=== PATIENT | female | born 1960 | race Caucasian/White ===

== ENCOUNTER 2022-06-21 17:39 | Emergency (ER) | payer OTHER, SELFPAY ==
[2022-06-21 17:48] VITALS: BP 120/60; BP 125/77; PULSE 77; PULSE 85; RESP 20; O2SAT 96; O2SAT 98; BMI 20.5
--- NOTE | 2022-06-21 17:58 | ED.GENADULT ---
HPI - General Adult General Stated complaint: UNRESP,DENIES DRUG USE,NARCAN GIVEN W/GOOD RESULT Time Seen by Provider: 06/21/22 17:51 Source: patient, EMS, RN notes reviewed and old records reviewed Mode of arrival: EMS Limitations: no limitations History of Present Illness HPI narrative: 62-year-old female presents for evaluation of ?I do not know why I am here and I want to leave. ? Per EMS, the patient was found unresponsive and responded to Narcan. The patient states ?I was just looking for witnarendra Mita on the bottom shelf. She denies any drug abuse including opiates or heroin. The patient states that she would like to leave She has no physical complaints She arrives awake, alert oriented to person place and time Review of Systems Constitutional: Constitutional: Reports as per HPI, Denies chills, Denies fatigue, Denies fever(s) and Denies headache(s) ENT: Denies headache(s) Cardiovascular: Cardiovascular: Denies chest pain and Denies dyspnea Respiratory: Respiratory: Denies cough and Denies dyspnea Gastrointestinal: Gastrointestinal: Denies abdominal pain, Denies constipation and Denies vomiting Genitourinary: Genitourinary: Denies dysuria Neurologic: Denies headache(s) and Denies focal weakness Endocrine: Endocrine: Denies fatigue Physical Exam ED Const General: healthy appearing, comfortable, no acute distress, alert and awake Nutritional Appearance: well nourished Orientation/consciousness: patient oriented x3 HENMT Head: Yes normocephalic and Yes atraumatic Throat: Yes posterior oropharynx normal Eyes Eyelids: Yes eyelids normal Conjunctivae: conjunctivae normal Sclerae: sclerae normal Corneas: corneas normal Pupils: Equal, round and reactive pupils present EOM: EOMs intact bilaterally Neck Neck: Yes full ROM Resp Effort & Inspection: normal respiratory effort, able to speak in complete sentences, no audible wheezes and not labored Auscultation: clear to auscultation bilaterally Cardio Rate: regular rate Rhythm: regular rhythm GI Inspection: No distended Palpation (GI): Soft to palpation, not firm, nontender, no guarding and not rigid Auscultation: normoactive bowel sounds Skin General skin exam: no rashes or lesions noted and elasticity normal Neuro General: patient oriented x3 Cranial nerves: Yes CN's II-XII intact bilaterally, Yes Equal, round and reactive pupils present and Yes Bilaterally intact EOM present Cognition (Neuro): normal cognition Extrem Other: Moving all extremities well without any obvious deformities Medical Decision Making Medical Decision Making MDM Narrative: 62 of female presents for evaluation of a possible opiate overdose. The patient denies any opiate abuse. I did offer to do a drug screen in the patient declines. The patient like to sign out against medical advice. Given that her vital signs are stable, she is awake, and oriented, she is on her right to do so. I did explain to the patient that if she does have opiates in her system, the reversal medication Narcan may not last as long as he will potentially could become unresponsive again and possibly . The patient is very adamant that she has no opiates in her system and she would like to sign out against medical advice despite the risks. Differential Diagnosis Opiate abuse Substance abuse Agitation Medical clearance Discharge Plan Discharge Clinical Impression: Opioid overdose Patient Disposition: Left Against Medical Advice Additional Instructions: Based on EMS report, your found unresponsive and responded to medication that reverses opiates. Your signing out against medical advice without giving is a urine sample to test for opiates Return to the ER immediately if you have any concerns or develops any signs or symptoms
--- NOTE | 2022-06-21 18:03 | PC.NURSE ---
pt found unresponsive by [employer]. narcan x1 by police. pt uncooperative with allowing staff to get full vitals. refused to stay in the ed. a+o, vss, denied pain. pt LAMA.
== END 2022-06-21 18:18 | disposition left against medical advice (07) ==
PROVIDERS: Emergency Provider Emergency Medicine
DX: R40.4 Transient alteration of awareness (principal); T40.1X1A Poisoning by heroin, accidental (unintentional), initial encounter; Y92.019 Unspecified place in single-family (private) house as the place of occurrence of the external cause
CPT/HCPCS: 99282